=== PATIENT | female | born 1940 | race Caucasian/White ===

== ENCOUNTER 2018-08-01 05:32 | Inpatient (IN) | payer MEDICARE, BC ==
[2018-08-01] MEDS ORDERED: Acetaminophen 500 MG Tab PO ONE (05:45)
[2018-08-01] MEDS ORDERED: Dextrose 5%-Lactated Ringers 1,000 ML IV SCH (06:30)
[2018-08-01] MEDS ORDERED: Meropenem 500 MG SDV ONE (06:37)
[2018-08-01] MEDS ORDERED: Bupivacaine 0.5%/EPINEPHrine 1:200,000 50 ML MDV ONE (06:39)
[2018-08-01] MEDS ORDERED: Ondansetron 4 MG/2 ML SDV ONE (07:05)
[2018-08-01] MEDS ORDERED: Rocuronium 50 MG/5 ML Vial ONE (07:05)
[2018-08-01] MEDS ORDERED: fentaNYL 250 MCG/5 ML SDV ONE (07:05)
[2018-08-01] MEDS ORDERED: Dexamethasone 4 MG/ML SDV ONE (07:05)
[2018-08-01] MEDS ORDERED: Propofol 200 MG/20 ML SDV ONE (07:05)
[2018-08-01] MEDS ORDERED: Neostigmine Methylsulfate 1 MG/ML 5 ML Syringe ONE (07:05)
[2018-08-01] MEDS ORDERED: Glycopyrrolate 0.2 MG/ML 5 ML MDV ONE (07:05)
[2018-08-01] MEDS ORDERED: Succinylcholine 200 MG/10 ML MDV ONE (07:05)
[2018-08-01] MEDS ORDERED: Ketamine 500 MG/5 ML MDV IV SCH (07:30)
[2018-08-01] MEDS ORDERED: Ropivacaine 40 ML, Dexamethasone 8 MG, EPINEPHrine 0.4 MG, Sodium Chloride 0.9% 37.6 ML NERVRT SCH ×4 (07:30)
[2018-08-01] MEDS ORDERED: ceFAZolin 2 GM in Premix Bag 1 BAG IV ONE (07:30)
[2018-08-01] MEDS ORDERED: Linezolid 200 MG/100 ML Bag IRR ONE (07:50)
[2018-08-01] MEDS ORDERED: Ondansetron 4 MG/2 ML SDV IVPUSH PRN (09:39)
[2018-08-01] MEDS ORDERED: Hypromellose 0.4% Ophth Soln 15 ML Bottle EYEBOTH SCH ×2 (10:00→21:00)
[2018-08-01] MEDS: HYDROmorphone 2 MG Tab PO PRN ×3 (10:42→22:07)
[2018-08-01] MEDS: Hydrochlorothiazide/Triamterene 25-37.5 Tab PO SCH (10:47)
[2018-08-01] MEDS: Dextrose 5%-Lactated Ringers 1,000 ML IV SCH ×2 (11:40→19:50)
[2018-08-01] MEDS: Acetaminophen 325 MG Tab PO SCH ×3 (11:41→23:41)
[2018-08-01] MEDS: ceFAZolin 2 GM in Premix Bag 1 BAG IV SCH ×2 (14:18→21:41)
[2018-08-02] MEDS: Dextrose 5%-Lactated Ringers 1,000 ML IV SCH (04:06)
[2018-08-02] MEDS: Acetaminophen 325 MG Tab PO SCH (06:02)
[2018-08-02] MEDS: ceFAZolin 2 GM in Premix Bag 1 BAG IV SCH (06:03)
[2018-08-02 07:29] VITALS: BP 108/46
[2018-08-02] MEDS ORDERED: Levothyroxine 25 MCG Tab PO SCH (07:30)
[2018-08-02] MEDS: Hydrochlorothiazide/Triamterene 25-37.5 Tab PO SCH (08:31)
[2018-08-02] MEDS ORDERED: Aspirin 81 MG Tab.EC PO SCH (09:00)
[2018-08-02] MEDS ORDERED: amLODIPine 10 MG Tab PO SCH (09:00)
[2018-08-02] MEDS: HYDROmorphone 2 MG Tab PO PRN (10:06)
--- NOTE | 2018-08-04 12:42 | DISCH ---
FINAL DIAGNOSES: 1. Incarcerated umbilical hernia. 2. Extensive intraperitoneal adhesions. 3. Subtotal thyroidectomy with mild hypothyroidism, based on current treatment. 4. History of hypertension. 5. History of impaired glucose tolerance. 6. Nonalcoholic fatty liver disease. 7. Hyperlipidemia. 8. Macular degeneration. OPERATIVE PROCEDURES: This was done on 08/01/2018; diagnostic laparoscopy with lysis of adhesions and; 1. Repair of incarcerated umbilical hernia with mesh. 2. Placement of Vicryl mesh to limit recurrent adhesion formation. HOSPITAL COURSE: This is a 77-year-old female presenting with a progressively more symptomatic umbilical hernia. On the day of admission, this was treated surgically with mesh repair via laparoscopic approach. She had quite a bit in the way of adhesions intraabdominally, and to limit recurrent adhesion formation, a Vicryl mesh was placed from the pelvic area up against the abdominal wall and underneath the current mesh. Postoperatively, she has had no major problems and will be discharged home on postoperative day #1. The patient did have a TSH drawn. She normally had been on 75 mcg a day of Synthroid, and this showed a mild elevation of the TSH at 4.96 with the upper limit of normal being 3.74. Given this, we will switch her Synthroid dose from 75 to 88 mcg today. She will be instructed to have a TSH drawn per Dr. Plascencia in 3 months. Otherwise, she will be continued on her home medications plus Tylenol 650 mg p.o. q.4 hours p.r.n. pain; Dilaudid 2 mg p.o. q.4 hours p.r.n. pain, #30; and the Synthroid dose will be switched from 75 to 88 mcg p.o. daily.
--- NOTE | 2018-08-05 08:04 | OR ---
DATE OF PROCEDURE: 08/01/2018 PREOPERATIVE DIAGNOSIS: Incarcerated umbilical hernia. POSTOPERATIVE DIAGNOSES: 1. Incarcerated umbilical hernia. 2. Extensive intraperitoneal adhesions. OPERATIVE PROCEDURES: Diagnostic laparoscopy with lysis of adhesions, and: 1. Repair of incarcerated umbilical hernia with mesh (52988). 2. Placement of Vicryl mesh to displace the viscera from the abdominal and pelvic wall and newly placed mesh to limit recurrent adhesion formation ([id number]). ANESTHESIA: General. RUG DRY ROOM ATTENDANT: Sherita Rodarte PA-C. INDICATIONS FOR PROCEDURE: A 77-year-old presenting with an increasingly symptomatic non- reducible umbilical hernia. Plan is to proceed with laparoscopic repair using mesh. Potential risks including bleeding, infection, injury to underlying viscera, as well as possibility of mesh becoming infected or the hernia recurring were all reviewed, and the patient wishes to proceed. DETAILS OF PROCEDURE: The patient was taken to the operative room and placed in a supine position. After general endotracheal anesthesia was induced, a Yo catheter was inserted, which was removed at the end of the procedure, and the abdomen prepped and draped. In the left lateral abdomen, a transverse incision was made and the peritoneal cavity entered under direct vision with an Optiview trocar. Following this, four additional 5 mm trocars were placed, two on the right side, two on the left side, and the abdomen examined. Bilateral mid abdominal transversus abdominis plane blocks were then placed with the direct visualization of the needle in the correct plane and injection of the standard solution bilaterally. The patient was noted to have significant adhesions between the anterior abdominal and pelvic lance between the omentum and small bowel. These were initially taken down. The patient was then noted to have incarcerated component of omentum within the umbilical hernia. With external pressure and Harmonic scalpel dissection, this was then reduced leaving a defect of around 3 cm at the fascia level. A [address] mesh with the balloon positioning system was then selected and soaked in antibiotic saline solution. This was placed in intraperitoneal location, small stab wound just below the umbilicus was made, and the balloon catheter pulled up through the abdominal wall, thus affixing the mesh in general position. Balloon was then inflated and the mesh was then affixed circumferentially with 3 rings of absorbable tacking screws. At that point, the catheter was deflated and balloon was withdrawn, and the mesh was found to be affixed in all areas very satisfactorily. To limit recurrent adhesion formation, the patient then had a 12-inch segment of Vicryl mesh placed down into the pelvic area behind the urinary bladder, along the pelvic sidewalls, and up against the abdominal wall, including underlying the newly placed mesh. Trocars were removed. Fascia at the 12 mm site was closed with 0 Vicryl stitch and the skin with 4-0 Vicryl skin stitch. Dressing was applied. The patient was taken to the recovery room in satisfactory condition. Physician ortho assistant, Sherita Rodarte played an essential role in assisting in this case, helping to position the patient, retract structures as needed, as well as suturing and cutting sutures when indicated. Her presence improved the patient's safety and decreased the operative time. Taj Dash MD /[id number]
== END 2018-08-02 11:01 | disposition home or self-care (01) | DRG 337 ==
LOC: JP.MS 05:32 → JP.SDS 05:32 → EDSTATUS 08:40 → JP.MS 08:45 → UNDOADMIN 08:45
PROVIDERS: ADMIT Surgery; ATTEND Surgery
PROC: 0WUF4JZ Supplement Abdominal Wall with Synthetic Substitute, Percutaneous Endoscopic Approach (ICD-10-PCS; principal; 2018-08-01)
PROC: 0DNU4ZZ Release Omentum, Percutaneous Endoscopic Approach (ICD-10-PCS; 2018-08-01)
PROC: 0DN84ZZ Release Small Intestine, Percutaneous Endoscopic Approach (ICD-10-PCS; 2018-08-01)
PROC: 0DNW4ZZ Release Peritoneum, Percutaneous Endoscopic Approach (ICD-10-PCS; 2018-08-01)
PROC: 3E0M45Z Introduction of Adhesion Barrier into Peritoneal Cavity, Percutaneous Endoscopic Approach (ICD-10-PCS; 2018-08-01)
PROC: 3E0T3BZ Introduction of Anesthetic Agent into Peripheral Nerves and Plexi, Percutaneous Approach (ICD-10-PCS; 2018-08-01)
DX: K42.0 Umbilical hernia with obstruction, without gangrene (principal); K66.0 Peritoneal adhesions (postprocedural) (postinfection); E03.9 Hypothyroidism, unspecified; I10 Essential (primary) hypertension; Z85.828 Personal history of other malignant neoplasm of skin; L40.9 Psoriasis, unspecified; E78.5 Hyperlipidemia, unspecified; H35.30 Unspecified macular degeneration; Z79.82 Long term (current) use of aspirin; K76.0 Fatty (change of) liver, not elsewhere classified; Z87.898 Personal history of other specified conditions
CPT/HCPCS: 36415; 80053; 83735; 84100; 84443; 85027; 94762; A9270-GY; C1781; J0171; J0330; J0690; J1100; J2020; J2185; J2405; J2704; J2710; J2795; J3010; J3490; J7042; J7050

== ENCOUNTER 2021-08-31 20:27 | Emergency (ER) | payer MEDICARE, BC ==
[2021-08-31 21:37] VITALS: BP 172/69; PULSE 75
--- NOTE | 2021-08-31 22:21 | EDM.PDOC ---
ED HPI GENERAL MEDICAL PROBLEM - General Chief Complaint: Gastrointestinal Problem Stated Complaint: BLEEDING FROM BOWELS Time Seen by Provider: 08/31/21 22:00 Source of Information: Reports: Patient, Old Records, RN History Limitations: Reports: No Limitations - History of Present Illness INITIAL COMMENTS - FREE TEXT/NARRATIVE: 80 yo female presents with her daughter for evaluation of blood on the toilet paper and in her underwear since a BM about 7 pm tonight. The blood is bright red. She did not have to strain to have the BM and her stool was not hard. There is no pain. She is not on any blood thinners. She does still have a uterus. She did not put her finger in her vagina to see if the bleeding was coming from there. She is not dizzy with standing. Onset: Today, Sudden Onset Date: 08/31/21 Onset Time: 19:00 Duration: Hour(s):, Intermittent Location: Reports: Pelvis Quality: Reports: Other (no pain) Severity: Mild Improves with: Reports: None Worsens with: Reports: Other (unknown) Context: Reports: Other (See HPI) Associated Symptoms: Reports: No Other Symptoms Treatments BILLING AND ACCOUNTING STAFF ASSISTANT: Reports: Other (see below) (none) - Related Data Allergies Allergy/AdvReac Type Severity Reaction Status Date / Time adhesive Allergy Rash Verified 08/31/21 21:38 atorvastatin Allergy Cannot Verified 08/31/21 21:38 Remember benzalkonium chloride Allergy Cannot Verified 08/31/21 21:38 [From Travatan] Remember brimonidine tartrate Allergy Cannot Verified 08/31/21 21:38 [From Combigan] Remember calcium Allergy Cannot Verified 08/31/21 21:38 Remember codeine Allergy Hives Verified 08/31/21 21:38 ezetimibe Allergy Excitabilit Verified 08/31/21 21:38 y hydrocodone Allergy Anxiety Verified 08/31/21 21:38 ketorolac Allergy Cannot Verified 08/31/21 21:38 Remember lisinopril Allergy Joint Pain Verified 08/31/21 21:38 metoprolol Allergy Excitabilit Verified 08/31/21 21:38 y oxycodone [Oxycodone] Allergy Hives Verified 08/31/21 21:38 timolol [Timolol] Allergy Cannot Verified 08/31/21 21:38 Remember timolol maleate Allergy Cannot Verified 08/31/21 21:38 [From Combigan] Remember tramadol Allergy Hives Verified 08/31/21 21:38 travoprost [From Travatan] Allergy Cannot Verified 08/31/21 21:38 Remember Home Meds: Home Meds Multivitamin [Multi-Vitamin Daily] 1 each PO DAILY 09/15/13 [History] Triamterene/Hydrochlorothiazid [Triamterene-HCTZ 37.5-25 MG] 1 tab PO DAILY 09/15/13 [History] amLODIPine [Norvasc] 10 mg PO DAILY 09/15/13 [History] Ascorbic Acid/Bioflavonoids [Vit C-Bioflavonoids SA] 1 each PO DAILY 07/28/16 [History] Emollient [Vanicream] 1 dose TOP DAILY 07/28/16 [History] Hypromellose [Natural Balance Tears] 1 drop EYEBOTH DAILY 11/25/17 [History] Hydrocortisone [Hydrocortisone 1% Crm] 1 applic TOP DAILY 07/30/18 [History] Levothyroxine [Synthroid] 1 tab PO DAILY 08/31/21 [History] Past Medical History HEENT History: Reports: Glaucoma, Impaired Vision Cardiovascular History: Reports: High Cholesterol, Hypertension Respiratory History: Reports: Asthma Gastrointestinal History: Reports: Colon Polyp Genitourinary History: Reports: None 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: , Spontaneous Musculoskeletal History: Reports: Fracture Neurological History: Reports: Concussion Endocrine/Metabolic History: Reports: Hypothyroidism Hematologic History: Reports: Anemia Oncologic (Cancer) History: Reports: Basal Cell Carcinoma, Squamous Cell Carcinoma Other Oncologic History: skin ca Dermatologic History: Reports: Other (See Below) Other Dermatologic History: squamous cell and basal cell carcinoma - Infectious Disease History Infectious Disease History: Reports: Chicken Pox, Measles, Mumps, Shingles - Past Surgical History HEENT Surgical History: Reports: Tonsillectomy Cardiovascular Surgical History: Reports: None Respiratory Surgical History: Reports: None GI Surgical History: Reports: Colonoscopy Female Surgical History: Reports: D&C Endocrine Surgical History: Reports: Thyroidectomy, Other (See Below) Other Endocrine Surgeries/Procedures: partial thyroidectomy according to patient Neurological Surgical History: Reports: None Musculoskeletal Surgical History: Reports: Arthroscopic Knee Oncologic Surgical History: Reports: None Dermatological Surgical History: Reports: Skin Biopsy Social & Family History - Family History Family Medical History: No Pertinent Family History - Tobacco Use Tobacco Use Status *Q: Never Tobacco User - Caffeine Use Caffeine Use: Reports: Coffee, Soda, Tea - Recreational Drug Use Recreational Drug Use: No ED ROS GENERAL - Review of Systems Review Of Systems: See Below Constitutional: Reports: No Symptoms HEENT: Reports: No Symptoms Respiratory: Reports: No Symptoms GI/Abdominal: Reports: Hematochezia (possibly) : Reports: Other (possible vaginal bleeding) Skin: Reports: No Symptoms Neurological: Reports: No Symptoms ED EXAM, RENAL/ - Physical Exam Exam: See Below Exam Limited By: No Limitations General Appearance: Alert, WD/WN, No Apparent Distress Eye Exam: Bilateral Eye: Normal Inspection Ears: Normal External Exam, Normal Canal, Hearing Grossly Normal Nose: Normal Inspection, No Blood Throat/Mouth: Normal Inspection, Normal Lips, Normal Voice, No Airway Compromise Head: Atraumatic, Normocephalic Neck: Normal Inspection Respiratory/Chest: No Respiratory Distress, Lungs Clear, Normal Breath Sounds, No Accessory Muscle Use Cardiovascular: Regular Rate, Rhythm, No Edema GI/Abdominal: Normal Bowel Sounds, Soft, Non-Tender, No Distention. No: Diste nded, Tender Rectal (Female) Exam: Normal Exam, Normal Rectal Tone. No: Black Stool, Bloody Stool, Fecal Impaction, Hemorrhoids, Rectal Fissure, Tenderness Back Exam: Normal Inspection Extremities: Normal Inspection Neurological: Alert, Oriented, CN II-XII Intact, Normal Cognition, No Motor/Sensory Deficits Psychiatric: Normal Affect, Normal Mood Skin Exam: Warm, Dry, Intact, Normal Color, No Rash Course - Vital Signs Last Recorded V/S: Last Vital Signs Temp 35.6 C L 08/31/21 21:35 Pulse 75 08/31/21 21:35 Resp 16 08/31/21 21:35 BP 172/69 H 08/31/21 21:35 Pulse Ox 95 08/31/21 21:35 Departure - Departure Time of Disposition: 22:21 Disposition: Home, Self-Care 01 Condition: Fair Clinical Impression: Postmenopausal vaginal bleeding - Discharge Information *PRESCRIPTION DRUG MONITORING PROGRAM REVIEWED*: Not Applicable *COPY OF PRESCRIPTION DRUG MONITORING REPORT IN PATIENT RIGOBERTO: Not Applicable Instructions: Abnormal Uterine Bleeding, [id number] Referrals: Mami Copeland DO [Primary Care Provider] - Additional Instructions: Follow up with Dr. Min ROMAN or get a referral from her to a pastor for your post-menopausal bleeding. Sepsis Event Note (ED) - Evaluation Sepsis Screening Result: No Definite Risk - Focused Exam Vital Signs: Vital Signs Temp Pulse Resp BP Pulse Ox 08/31/21 21:35 35.6 C L 75 16 172/69 H 95
== END 2021-08-31 22:49 | disposition home or self-care (01) ==
LOC: JP.ED 20:27
DX: N93.8 Other specified abnormal uterine and vaginal bleeding (principal); E03.9 Hypothyroidism, unspecified; E78.00 Pure hypercholesterolemia, unspecified; I10 Essential (primary) hypertension; Z91.048 Other nonmedicinal substance allergy status; Z88.5 Allergy status to narcotic agent; Z88.6 Allergy status to analgesic agent; Z88.8 Allergy status to other drugs, medicaments and biological substances; Z79.899 Other long term (current) drug therapy
CPT/HCPCS: 99283